=== PATIENT | female | born 1980 | race Caucasian/White ===

== ENCOUNTER 2016-05-31 18:43 | Emergency (ER) | payer OTHER ==
[2016-05-31 18:54] VITALS: BP 99/79; PULSE 84; RESP 16; TEMP 98.4; O2SAT 97
--- NOTE | 2016-05-31 19:20 | UCPHY ---
H & P Time Seen by Provider: 05/31/16 19:08 Patient Type: New HPI/ROS: This patient reports some painful lesions in her mouth. She reports occasional canker sores but she has never had more than 1 at a time and currently she has 2 on her tongue and 1 on her gum. Symptoms been present for 5 days. She reports some 7/10 pain at peak intensity described as achy and burning in nature. She has no other associated symptoms. ROS: No fevers or chills. No other constitutional symptoms. Integumentary: No skin rash. No lip lesions HEENT: No URI symptoms or other complaints. She still tolerating p.o. intake. 5 point ROS is otherwise negative. Past Medical/Surgical History: No history of HSV. Otherwise healthy Smoking Status: Never smoked Physical Exam: Physical Exam Vital signs are normal. General: No acute distress HEENT: Oropharynx: No lip lesions. No erythema or exudates to the posterior pharynx. She has small ulcerative lesion to the left lateral tongue into the tip of the tongue as well as a gingival small ulcerative lesion. No dysphonia. No drooling or stridor. Eyes: Pupils equal and react to light. Extraocular motions are intact. Cardiac: Brisk capillary refill intact throughout Skin: No rash or pallor. Neuro: Alert with no focal deficits noted. Initial differential diagnosis: Canker sores, viral stomatitis, doubt HSV Constitutional: Initial Vital Signs Temperature (C) 36.9 C 05/31/16 18:45 Heart Rate 84 05/31/16 18:45 Respiratory Rate 16 05/31/16 18:45 Blood Pressure 99/79 L 05/31/16 18:45 O2 Sat (%) 97 05/31/16 18:45 O2 Delivery Mode Room Air Allergies/Adverse Reactions: Sulfa (Sulfonamide Antibiotics) Allergy (Intermediate, Verified 05/31/16 18:54) sore joints, rash pain meds Allergy (Intermediate, Uncoded 05/31/16 18:54) nausea Home Medications: Medication Instructions Recorded NK [No Known Home Meds] 05/31/16 MDM/Departure - MDM ED Course/Re-evaluation: Counseled the patient regarding viral stomatitis is appears most consistent a diagnosis. - Depart Disposition: Home, Routine, Self-Care Clinical Impression: Stomatitis Condition: Good Instructions: Gingivostomatitis (ED) Additional Instructions: Diagnosis: Stomatitis Plan: Try lysine supplement exclusion-rinse gargle spit as needed for pain Ibuprofen in addition as needed. Symptoms likely improve and resolve over the next 3-7 days. Return for any significant worsening despite the treatment plan Referrals: NONE *PRIMARY CARE P,. [Primary Care Provider] - As per Instructions - PQRS PQRS Measurement: NA
== END 2016-05-31 19:31 | disposition home or self-care (01) ==
LOC: CED 18:43
DX: K12.1 Other forms of stomatitis (principal)
CPT/HCPCS: G0463-PO